=== PATIENT | male | born 1970 | race Caucasian/White ===

== ENCOUNTER 2016-10-22 07:24 | Day surgery (SDC) | payer OTHER ==
[2016-10-22] VITALS (9 sets, daily range): BP systolic 130–158; BP diastolic 85–98; PULSE 8–97; RESP 13–18; O2SAT 93–98
[~2016-10-22] VITALS: Ht 170.2 cm; Wt 85.5 kg
[~2016-10-22 07:24] MED LIST: AMPH20CA5 PO; CeFAZolin 2 Gm/50 mL D5W IV Premix IV ONE; IMI100 PO; OXYC1TAB24 PO; TAMS0.4C98 PO
[2016-10-22] MEDS ORDERED: Ondansetron 2 mg/mL 2 mL Inj ONE (07:25)
[2016-10-22] MEDS ORDERED: MetoCLOpramide 5 mg/mL 2 mL Inj ONE (07:25)
[2016-10-22] MEDS ORDERED: Dexamethasone 4 mg/mL Inj ONE (07:25)
[2016-10-22] MEDS ORDERED: fentaNYL-PF 50 mCg/mL 2 mL Inj ONE (07:25)
[2016-10-22] MEDS ORDERED: Propofol 10,000 mCg/mL 20 mL Inj ONE (07:25)
[2016-10-22] MEDS ORDERED: HYDR25CA PO (08:06)
[2016-10-22] MEDS ORDERED: ONDA-53 PO (08:06)
[2016-10-22] MEDS: Lactated Ringer's 1,000 ML IV SCH ×2 (08:31→09:40)
[2016-10-22] MEDS ORDERED: Belladonna Alk-Opium 60 mg Rectal Suppository RECTAL ONE ×2 (09:08→09:40)
[2016-10-22] MEDS ORDERED: Lactated Ringer's 500 ML IV PRN (09:38)
[2016-10-22] MEDS ORDERED: Lactated Ringer's 1,000 ML IV SCH (09:38)
[2016-10-22] MEDS ORDERED: fentaNYL-PF 50 mCg/mL 2 mL Inj IVPUSH PRN (09:40)
[2016-10-22] MEDS ORDERED: EPHEDrine Sulfate 50 mg/mL Inj IVPUSH PRN (09:40)
[2016-10-22] MEDS ORDERED: MetoCLOpramide 5 mg/mL 2 mL Inj IVPUSH PRN (09:40)
[2016-10-22] MEDS ORDERED: Atropine 0.4 mg/mL Inj IVPUSH PRN (09:40)
[2016-10-22] MEDS ORDERED: Labetalol 5 mg/mL 4 mL Inj IV PRN (09:40)
[2016-10-22] MEDS ORDERED: Ondansetron 2 mg/mL 2 mL Inj IVPUSH PRN (09:40)
[2016-10-22] MEDS ORDERED: Phenylephrine 10,000 mCg/mL Inj IVPUSH PRN (09:40)
[2016-10-22] MEDS ORDERED: hydrALAZINE 20 mg/mL Inj IVPUSH PRN (09:40)
[2016-10-22] MEDS ORDERED: HYDROmorphone 1 mg/mL Inj IVPUSH PRN (09:40)
--- NOTE | 2016-10-22 09:40 | PCM.HPANE ---
Patient Data Surgeon Admitting Provider: Attending Provider:Marlee Hwang MD Primary Care Physician:[facility] Clinic,[facility] Other Provider: Reason for Visit Left Ureteral Stone Ht/WT & BMI Height (Feet): 5 Height (Inches): 7.00 Weight (Kilograms): 85.500 Body Mass Index 29.00 Allergies Coded Allergies: No Known Allergies (Verified Allergy, Unknown, 10/21/16) MRSA MRSA: No Medications Reported Medications Ondansetron 4 Mg Tablet4 Mg PO PRN 10/22/16 Hydroxyzine Pamoate (Vistaril)25 Mg [id number] Mg PO TID PRN For Itching Ref 0 10/22/16 oxyCODONE-Acetaminophen 5-325 mg 1 Each Tablet1 Tab PO Q6H PRN For Pain Ref 0 10/21/16 Sumatriptan (Imitrex)100 Mg [id number] Mg PO 10/21/16 Tamsulosin (Flomax)0.4 Mg Capsule0.4 Mg PO DAILY Ref 0 10/21/16 Dextroamphetamine/Amphetamine ER (Adderall XR)20 Mg Cap.er.24h20 Mg PO AM Ref 0 05/25/14 Discontinued Reported Medications Hydrocodone-Acetaminophen 5-325 mg 1 Each Tablet1 Tablet PO Q4H PRN For Pain Ref 0 10/21/16 Dextroamphetamine/Amphetamine ER (Adderall XR)10 Mg Cap.er.24h10 Mg PO HS Ref 0 05/25/14 History History of ENT Problems?: No Hx of Heart Problems?: No Hx of Respiratory Problem?: No Hx Neurologic Problems?: Yes Other Neurological Pertinent: ADHD Hx of GI Problems?: No Genitourinary History: Positive for:: Kidney Stones Male Hx: Denies:: Prostate Problems Scrotal Mass Testicular Surgery Skin History: Denies:: History Skin Disorders? Pressure Ulcers Hx Musculoskeletal Problems?: No Hx of Psycho/Social Problems?: Yes (ADHD) Hx Surgeries?: Yes (10/14 CYSTO) Hx Any Other Health Problems?: No Stop/Bang S-Snoring: Do You Snore Loudly: No T-Tired: feel tired, fatigued: No O-Obsered: Observed not breath: No P-Blood Pressure: treated: No B- Body Mass Index > 35 kg/m2: No A- Age over 50: No N- Neck Large Circumference: No G- Gender Male: Yes SAM Total Score: 1 Risk Assessment Category Category 1A: Patient has history of documented sleep apnea, and HAS NOT received any narcotic, sedative or anesthesia administration during this stay. Category 1B: Patient has history of documented sleep apnea, and HAS received any narcotic , sedative or anesthesia administration during this stay Category 2: Patient has SUSPECTED Obstructive Sleep Apnea, and HAS received any narcotic , sedative or anesthesia administration during this stay. Category 3: Patient has SUSPECTED Obstructive Sleep Apnea and HAS NOT received narcotic, sedative or anesthesia administration during this stay. Category 4: Outpatient in Procedural Areas with known sleep apnea or who screen positive for High Risk via the STOP/BANG questionnaire. Exam Exam Vital Signs Vital Signs Date Time Temp Pulse Resp B/P Pulse Ox O2 Delivery O2 Flow Rate FiO2 10/22/16 07:49 36.4 80 18 158/98 94 Room Air General Appearance: Alert, Oriented X3, Cooperative, No Acute Distress HEENT/AIRWAY: MP 2, Neck Movement (FROM), Mouth Opening (3 FBMO) Lungs: Clear to Auscultation, Normal Air Movement Heart: Exam Unremarkable, Regular Rate/Rhythm, No Murmurs/Rubs/Gallops Plan Impression Patient chart reviewed, patient interviewed and anesthestic plan with risks, benefits, and alternatives discussed, and informed consent obtained. NPO Status: > 8 hrs ASA Physical Status: ASA2 Mod Systemic Disease Anesthetic Plan: GA Bene/Risks/Altern/Consents: Yes HP Complete Prior to Induction: Yes Xavi Deshpande MD Oct 22, 2016 08:20
--- NOTE | 2016-10-22 12:04 | PCM.ANEP1 ---
Post Anesthesia Phase 1 PACU Phase 1 Assessment Vital Signs Vital Signs Date Time Temp Pulse Resp B/P Pulse Ox O2 Delivery O2 Flow Rate FiO2 10/22/16 11:20 82 13 143/92 95 Room Air 10/22/16 11:15 84 14 133/85 94 Room Air 10/22/16 11:10 88 15 130/88 94 Room Air 10/22/16 11:05 96 14 133/85 98 Simple Mask 8 10/22/16 11:00 90 16 150/90 97 Simple Mask 8 10/22/16 10:58 36.3 97 17 143/90 97 Simple Mask 8 10/22/16 07:49 36.4 80 18 158/98 94 Room Air Anesthetic Administered: GA Level of Alertness: Awake, talking GUPTA's with Equal Strength: Yes Pain: No Nausea or Vomiting: No Oxygen Delivery: Simple Mask Lungs: Clear to Auscultation, Normal Air Movement Dermatome Level: Full Sensation Xavi Deshpande MD Oct 22, 2016 12:04
--- NOTE | 2016-10-22 12:05 | PCM.ANEP2 ---
Post Anesthesia Evaluation ASA/CMS Post Anesthesia VS in Patient's Normal Range?: Yes Resp Stable; Airway Patent?: Yes CV Function & Hydration Stable: Yes Mental Status Recovered?: Yes Pain control Satisfactory?: Yes N/V Control Satisfactory?: Yes Xavi Deshpande MD Oct 22, 2016 12:05
--- NOTE | 2016-10-22 12:09 | OP ---
[address] [address] OPERATIVE REPORT PATIENT: ESTEPHANIA FLOOD : 1970 MR#: [id number] ADMIT: 10/22/2016 JOB ID: [id number] DATE OF SURGERY: 10/22/2016 PREOPERATIVE DIAGNOSIS(ES): Left ureteral calculus. POSTOPERATIVE DIAGNOSIS(ES): Left ureteral calculus. PROCEDURE: 1. Cystoscopy. 2. Ureteroscopy 3. Laser lithotripsy. 4. Stone basketing. 5. Insertion of stent. SURGEON: Marlee Hwang MD ANESTHESIA: General anesthetic, Dr. Deshpande. DESCRIPTION OF PROCEDURE: Under general anesthetic, patient was placed in lithotomy position. Genitalia prepped and draped in a sterile manner. A 22-Ghanaian cystoscope was introduced through a normal urethra. Ureteral orifices were normal in position and appearance. A 0.035 Glidewire was advanced to the level of the left renal pelvis. Over this, a balloon dilation catheter was used to dilate the distal ureter. A 14-Ghanaian access sheath was then advanced to the level of the mid ureter just below the calculus. A 7-Ghanaian flexible ureteroscope was then advanced through the access sheath. Using a 270 micron laser fiber, the stone was broken into multiple fragments. With a combination of nitinol tipless and NGage baskets, multiple stone fragments were removed. All calyces were inspected and found to be free of any further stones. Because the right ureteral orifice appeared normal, it was elected to scope the distal ureter because of the presence of a 3 mm calculus on the last CT scan. A 7-Ghanaian semirigid ureteroscope was advanced into the distal ureter and inspected for at least 10 cm. No calculus was seen. It would appear that the patient had passed the calculus unaware. Patient tolerated the procedure well and left the operating room in good condition. ADDITIONAL INFORMATION: Following ureteroscopy, a 0.035 Glidewire was advanced to the level of the left renal pelvis. Over this, a 6-Ghanaian, 24 cm double-J stent was passed. When the stent was confirmed to be in good position fluoroscopically, the wire was removed. The patient tolerated the procedure well. B and O suppository was given for postoperative analgesia. The patient left the operating room in good condition. Addenda added by BEATRICE 10/23/16 at 7:27am
[2016-10-28 14:09] LABS: Stone Color Tan (.)
== END 2016-10-22 23:59 | disposition home or self-care (01) ==
LOC: SAS 07:24
PROVIDERS: ATTEND Urology
DX: N20.1 Calculus of ureter (principal); J45.909 Unspecified asthma, uncomplicated
CPT/HCPCS: 52356; 76001; 82360; C2617; J0690; J1100; J2405; J2765; J7120